=== PATIENT | male | born 1970 | race Hispanic/Latino ===

== ENCOUNTER 2024-10-23 11:27 | Inpatient (IN) | payer SELFPAY ==
[2024-10-23 12:22] LABS: #Basophils 0.03 10x3/uL (0.0-0.2); #Eosinophils 0.05 10x3/uL (0.0-0.7); #Monocytes 0.38 10x3/uL (0.11-0.59); #Neutrophils 5.49 10x3/uL (1.40-6.50); %Basophils 0.4 % (0.0-1.0); %Eosinophils 0.7 % (0.0-10.0); %Lymphocytes 15.9 % (21.0-51.0); %Monocytes 5.4 % (0.0-10.0); %Neutrophils 77.5 % (42.0-75.0); Hematocrit 44.3 % (42.0-52.0); Hemoglobin 15.4 g/dL (14.0-18.0); Mean Corpuscular Hemoglobin 29.8 pg (27.0-31.0); Mean Corpuscular Volume 85.7 fL (78.0-98.0); Platelet Count 331 10x3/uL (130-400); Red Blood Cell (RBC) Count 5.17 mill/uL (4.70-6.10); White Blood Cell (WBC) Count 7.09 10x3/uL (4.8-10.8)
[2024-10-23 12:45] LABS: Troponin I Less than 0.010 ng/mL (< 0.028)
[2024-10-23 13:07] LABS: ALT (SGPT) 16 U/L (Less than 45); AST (SGOT) 23 U/L (11-34); Albumin 4.1 g/dL (3.1-4.5); Alkaline Phosphatase 73 U/L (40-110); Anion Gap 11 mmol/L (10-20); BUN (Urea Nitrogen) 10 mg/dL (8.4-25.7); Bilirubin, Total 0.3 mg/dL (0.3-1.2); Calc. Creatinine Clearance 0 mL/min (70-130); Calcium 8.4 mg/dL (7.8-10.44); Carbon Dioxide 22 mmol/L (22-29); Chloride 105 mmol/L (98-107); Globulin 3.3 g/dL (2.4-3.5); Glucose 93 mg/dL (70-105); Potassium 3.9 mmol/L (3.5-5.1); Sodium 134 mmol/L (136-145)
[2024-10-23] MEDS ORDERED: Acetaminophen 500 MG TAB ONE (16:31)
[2024-10-23 16:55] LABS: Troponin I Less than 0.010 ng/mL (< 0.028)
[2024-10-23 16:56] LABS: Acetaminophen Less than 10 mcg/mL (Less than 10); Salicylate Less than 8.0 mg/dL (Less than 8.0)
[2024-10-23] MEDS ORDERED: Calcium Carbonate 500 MG ChewTAB PO PRN (16:57)
[2024-10-23] MEDS ORDERED: Nitroglycerin 0.4 MG TAB (25 Tab Bottle) SL PRN (16:57)
[2024-10-23] MEDS ORDERED: Ondansetron PF 4 MG/2 ML Vial IVP PRN (16:57)
[2024-10-23] MEDS ORDERED: Senokot S 8.6-50 MG TAB PO PRN (16:57)
[2024-10-23 17:24] LABS: Magnesium 1.9 mg/dL (1.6-2.6)
[2024-10-23 18:00] LABS: Bacteria/HPF None Seen HPF (None Seen); CAUTI Indications for Culture Acute Hematuria; Glucose, Urine (Dipstick) Normal (Negative); Leukocyte Negative Leu/uL (Negative); Protein, Urine (Dipstick) Negative (Neg-Trace); RBC/HPF 0-3 HPF (0-3); Specific Gravity, Urine 1.009 (1.002-1.036); WBC/HPF None Seen HPF (0-3)
[2024-10-23 18:02] LABS: Urine Culture Reflex No No
[2024-10-23 18:08] LABS: Cocaine Metabolite Screen Negative (Negative); THC/Cannabinoid Screen PRELIM POSITIVE (Negative); Tricyclic Screen Negative (Negative)
[2024-10-23 18:58] VITALS: BMI 25.1
[2024-10-23 19:35] LABS: Troponin I Less than 0.010 ng/mL (< 0.028)
[2024-10-23] MEDS: Ketorolac Tromethamine 30 MG (1 mL) VIAL IVP SCH (22:25)
[2024-10-24 04:20] LABS: #Basophils 0.06 10x3/uL (0.0-0.2); %Basophils 0.8 % (0.0-1.0); %Lymphocytes 35.7 % (21.0-51.0)
[2024-10-24 04:37] LABS: Anion Gap 11 mmol/L (10-20); BUN (Urea Nitrogen) 12 mg/dL (8.4-25.7); Calc. Creatinine Clearance 114 mL/min (70-130); Calcium 8.6 mg/dL (7.8-10.44); Carbon Dioxide 25 mmol/L (22-29); Cardiac Risk 3.0 (Less than 4.5); Chloride 105 mmol/L (98-107); Cholesterol 151 mg/dl (< 200 Desired); Glucose 102 mg/dL (70-105); HDL Cholesterol 50 mg/dL (>60 Neg Risk); LDL Cholesterol, Calculated 83 mg/dL; Potassium 4.2 mmol/L (3.5-5.1); Sodium 137 mmol/L (136-145); Triglycerides 91 mg/dL (Less than 150)
[2024-10-24 04:38] LABS: #Eosinophils 0.20 10x3/uL (0.0-0.7); #Monocytes 0.61 10x3/uL (0.11-0.59); #Neutrophils 3.82 10x3/uL (1.40-6.50); %Eosinophils 2.7 % (0.0-10.0); %Monocytes 8.3 % (0.0-10.0); %Neutrophils 52.2 % (42.0-75.0); Hematocrit 45.3 % (42.0-52.0); Hemoglobin 15.1 g/dL (14.0-18.0); Mean Corpuscular Hemoglobin 29.5 pg (27.0-31.0); Mean Corpuscular Volume 88.6 fL (78.0-98.0); Platelet Count 344 10x3/uL (130-400); Red Blood Cell (RBC) Count 5.11 mill/uL (4.70-6.10); White Blood Cell (WBC) Count 7.32 10x3/uL (4.8-10.8)
[2024-10-24] MEDS: Enoxaparin 40 MG (0.4 mL) SYRINGE SC SCH (09:13)
[2024-10-24] MEDS: Aspirin Chewable 81 MG TAB PO SCH (09:13)
[2024-10-24] MEDS: Carvedilol 6.25 MG TAB PO SCH (18:06)
[2024-10-24] MEDS: Acetaminophen 325 MG TAB PO PRN (21:43)
[2024-10-24] MEDS: Ketorolac Tromethamine 30 MG (1 mL) VIAL IVP PRN (21:44)
[2024-10-25] MEDS ORDERED: CATH FS SCH (09:45)
[2024-10-25] MEDS ORDERED: Heparin 10,000 UNITS/ 10 ML VIAL ONE (10:08)
[2024-10-25] MEDS ORDERED: PHENYLEPHRINE-NS 100 MCG/ML 10 ML SYRINGE ONE (10:08)
[2024-10-25] MEDS ORDERED: Nitroglycerin 50 MG/250 ML BOT 250 ML ONE (10:08)
[2024-10-25] MEDS ORDERED: Lidocaine 1% (PF) 30 ML VIAL ONE (10:08)
[2024-10-25] MEDS ORDERED: Iopamidol 370 76% 100 ML VIAL ONE (11:00)
[2024-10-25] MEDS ORDERED: Nitroglycerin 0.4 MG TAB (25 Tab Bottle) SL PRN (11:29)
[2024-10-25 12:46] VITALS: TEMP 97.5
[2024-10-25 16:15] VITALS: BP 101/60
== END 2024-10-25 16:05 | disposition home or self-care (01) | DRG 554 ==
LOC: ERS 11:27 → ERHOLD 14:05 → 2SE 18:05 → OBSVTOIN 10-24 16:08
PROVIDERS: ADMIT Hospitalist; ATTEND Internal Medicine
PROC: B2151ZZ Fluoroscopy of Left Heart using Low Osmolar Contrast (ICD-10-PCS; principal; 2024-10-24)
PROC: 4A023N7 Measurement of Cardiac Sampling and Pressure, Left Heart, Percutaneous Approach (ICD-10-PCS; principal; 2024-10-24)
PROC: B2111ZZ Fluoroscopy of Multiple Coronary Arteries using Low Osmolar Contrast (ICD-10-PCS; principal; 2024-10-24)
DX: M19.012 Primary osteoarthritis, left shoulder (principal); R03.0 Elevated blood-pressure reading, without diagnosis of hypertension; T40.711A Poisoning by cannabis, accidental (unintentional), initial encounter
CPT/HCPCS: 36415; 36416; 71046; 78452; 80048; 80053; 80061; 80306; 80307; 81001; 83690; 83735; 84484; 85025; 93005; 93017; 93306; 93458; 96372; 96374; 99152; 99153; A9502; C1769; C1887; C1894; G0378; J0461; J1644; J1650; J1885; J2250; J2785; J3010; Q9967

== ENCOUNTER 2024-11-21 19:51 | Emergency (ER) | payer SELFPAY | END 2024-11-21 22:26 | disposition left against medical advice (07) | LOC: ERS 19:51 | DX: Z53.21 Procedure and treatment not carried out due to patient leaving prior to being seen by health care provider (principal) ==

== ENCOUNTER 2024-11-29 08:48 | Emergency (ER) | payer SELFPAY ==
[2024-11-29] MEDS ORDERED: Ketorolac Tromethamine 30 MG (1 mL) VIAL ONE (09:23)
[2024-11-29] MEDS ORDERED: Ondansetron PF 4 MG/2 ML Vial ONE (09:23)
[2024-11-29 09:31] LABS: #Basophils 0.05 10x3/uL (0.0-0.2); #Eosinophils 0.09 10x3/uL (0.0-0.7); #Monocytes 0.45 10x3/uL (0.11-0.59); #Neutrophils 3.87 10x3/uL (1.40-6.50); %Basophils 0.9 % (0.0-1.0); %Eosinophils 1.6 % (0.0-10.0); %Lymphocytes 21.6 % (21.0-51.0); %Monocytes 7.9 % (0.0-10.0); %Neutrophils 67.8 % (42.0-75.0); Hematocrit 43.9 % (42.0-52.0); Hemoglobin 15.2 g/dL (14.0-18.0); Mean Corpuscular Hemoglobin 29.6 pg (27.0-31.0); Mean Corpuscular Volume 85.4 fL (78.0-98.0); Platelet Count 324 10x3/uL (130-400); Red Blood Cell (RBC) Count 5.14 mill/uL (4.70-6.10); White Blood Cell (WBC) Count 5.70 10x3/uL (4.8-10.8)
[2024-11-29 09:52] LABS: ALT (SGPT) 18 U/L (Less than 45); AST (SGOT) 21 U/L (11-34); Albumin 4.0 g/dL (3.1-4.5); Alkaline Phosphatase 84 U/L (40-110); Anion Gap 14 mmol/L (10-20); BUN (Urea Nitrogen) 13 mg/dL (8.4-25.7); Bilirubin, Total 0.4 mg/dL (0.3-1.2); Calc. Creatinine Clearance 0 mL/min (70-130); Calcium 9.2 mg/dL (7.8-10.44); Carbon Dioxide 20 mmol/L (22-29); Chloride 106 mmol/L (98-107); Globulin 3.1 g/dL (2.4-3.5); Glucose 101 mg/dL (70-105); Lipase 22 U/L (8-78); Magnesium 2.0 mg/dL (1.6-2.6); Potassium 4.1 mmol/L (3.5-5.1); Sodium 136 mmol/L (136-145)
== END 2024-11-29 11:41 | disposition home or self-care (01) ==
LOC: ERS 08:48
DX: J18.9 Pneumonia, unspecified organism (principal); R07.89 Other chest pain; Z55.6 Problems related to health literacy
CPT/HCPCS: 71045; 80053; 83690; 83735; 83880; 84484; 85025; 85379; 93005; 96374; J1885; J2270; J2405